=== PATIENT | female | born 1945 | race Caucasian/White ===

== ENCOUNTER → 2019-11-22 | Day surgery (SDC) | payer OTHER ==
[2019-11-16 14:48] LABS: Basophils # (auto) 0 uL; Basophils % (auto) 0.3 % (0.0-2.0); Eosinophils # (auto) 0.1 uL; Eosinophils % (auto) 1.4 % (0.0-7.0); Hematocrit 39.6 % (36.0-46.0); Hemoglobin 14.1 g/dL (12.2-16.2); Lymphocytes % (auto) 28.3 % (10.0-50.0); Mean Corpuscular Hemoglobin 32.6 pg (28.0-32.0); Mean Corpuscular Hgb Conc. 35.5 g/dL (32.0-36.0); Mean Corpuscular Volume 91.9 fL (80.0-100.0); Monocytes # (auto) 0.5 uL; Monocytes % (auto) 7.3 % (0.0-12.0); Neutrophils # (auto) 4.4 uL; Neutrophils % (auto) 62.7 % (37.0-80.0); Nucleated Red Blood Cells % 0.1 %; Platelet Count (auto) 232 10^3/uL (140-450); Red Blood Cells 4.31 10^6/uL (4.0-5.20); Red Cell Distribution Width 13.2 % (11.8-14.3); White Blood Cell 7.1 10^3/uL (4.4-10.8)
[2019-11-16 15:00] LABS: INR 1.11 (0.9-1.15); Partial Thromboplastin Time 25.6 sec (23.64-32.05)
[2019-11-16 15:03] LABS: Potassium 3.9 mmol/L (3.5-5.1)
[2019-11-16 15:06] LABS: Urine Bacteria NONE SEEN /hpf (None Seen); Urine Blood Negative /uL (Negative); Urine Specific Gravity 1.011 (1.001-1.035); Urine WBC 1 /hpf (0 - 5)
[2019-11-16 15:08] LABS: BUN/Creatinine Ratio 19.3; Bilirubin, Total 0.5 mg/dL (0.2-1.0); Total Protein 7.5 g/dL (6.4-8.2)
[~2019-11-22] VITALS: Ht 162.6 cm; Wt 64.4 kg
[~2019-11-22] MED LIST: BUPIVACAINE 0.25% INJ 50ML VIAL ONE; BUTACAP35 PO; CHOL100029 PO; CONJ ESTROGENS 0.625MG/GM VAG CRM 30GM PV ONE; DIPH2.5T73 PO; DexAMETHasone SOD PHOS 10MG/1ML VIAL INJ ONE; ETOD400T3 PO; ETOMIDATE (2MG/ML) 20ML VIAL IV ONE; HYDROmorphone HCL 2 MG/ML VL IV PRN; KETOROLAC TROMETH 30 MG/ML 1ML VIAL ONE; LIDOCAINE 2% (LOCAL ANESTH.) PF 5ml SDV ONE; LIDOCAINE W/ EPINEPHRINE 1% 20ML VIAL ONE; METOCLOPRAMIDE HCL 5MG/ml INJ 2ml VIAL ONE; MIDAZOLAM HCL 1MG/1ML-2 ML VIAL ONE; NUTRTAB40 PO; OMEG10004 PO; OMEP20TA PO; ONDANSETRON HCL 4 MG/2 ML VIAL IV PRN; ONDANSETRON HCL 4 MG/2 ML VIAL ONE; ROCURONIUM 10MG/ML 10ML VIAL IV ONE; ROSU5TAB5 PO; SODIUM CHLORIDE LOCK 10 ML ONE; VALS1TAB58 PO; VASOPRESSIN 20 UNIT/ML ONE; ceFAZolin 1GM VL ONE; ceFAZolin 1GM/50ML 50 ML IV ONE; ePHEDrine SULFATE 50 MG/ML AMP ONE; fentaNYL CITRATE 100 MCG/2 ML VL ONE; hydrALAZINE HCL 20 MG/ML VL IV PRN
[2019-11-22] MEDS: HYDROmorphone HCL 2 MG/ML VL IV PRN ×2 (17:55→18:08)
[2019-11-22 18:56] VITALS: BP 105/70
== END | disposition home or self-care (01) ==
LOC: SUR 14:28
PROVIDERS: ATTEND Obstetrics & Gynecology
DX: N81.6 Rectocele (principal); N89.8 Other specified noninflammatory disorders of vagina; N81.5 Vaginal enterocele; K21.9 Gastro-esophageal reflux disease without esophagitis; I10 Essential (primary) hypertension; G43.101 Migraine with aura, not intractable, with status migrainosus; G47.33 Obstructive sleep apnea (adult) (pediatric); M19.90 Unspecified osteoarthritis, unspecified site; Z90.710 Acquired absence of both cervix and uterus; Z90.49 Acquired absence of other specified parts of digestive tract; Z98.890 Other specified postprocedural states; Z79.899 Other long term (current) drug therapy; Z96.0 Presence of urogenital implants
CPT/HCPCS: 36415; 45560; 57135; 57282; 57287; 80053; 81001; 85025; 85610; 85730; 87086; 88300; 88305; 93005; J0690; J1170; J2001; J2250; J2405; J2765; J3010; J3490; Q4131; J1100; J1885